=== PATIENT | female | born 1955 | race Caucasian/White ===

== ENCOUNTER 2017-10-08 17:52 | Emergency (ER) | payer OTHER ==
[2017-10-08] MEDS ORDERED: ONDANSETRON 4 MG/2 ML VIAL ONE (18:12)
[2017-10-08] MEDS ORDERED: NS 1,000 ML IV ONE (18:20)
[2017-10-08] MEDS ORDERED: ONDANSETRON 4 MG/2 ML VIAL IVP ONE ×2 (18:20→21:22)
--- NOTE | 2017-10-08 18:26 | EDPHY ---
H & P Stated Complaint: abd pain Time Seen by Provider: 10/08/17 18:15 HPI/ROS: CHIEF COMPLAINT: Left lower quadrant abdominal pain HISTORY OF PRESENT ILLNESS: 62-year-old female arrives via private vehicle, driven by her friend, complaining of left lower quadrant abdominal pain since this afternoon approximately 3:00 p.m.. She last ate at 2:30 p.m. consisting of percy soup which she tolerated albeit with some postprandial nausea. She believes she may be constipated noting that her last bowel movement was this morning but notes that she has not had as significant a bowel movement as is usual in the past 3 days. Denies: Dysuria, hematuria, increased frequency, trauma or fall, fever chills, flu-like symptoms. 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 SOCIAL HISTORY: Nonsmoker PHYSICAL EXAM (Prior to examination, patient consented to physical exam, hands were washed and my usual and customary physical exam procedures followed) 1) GENERAL: Well-developed, well-nourished, alert and oriented. Appears uncomfortable, crying 2) HEAD: Normocephalic, atraumatic 3) HEENT: Pupils equal, round, reactive to light bilaterally. Sclera anicteric. Nasopharynx, oropharynx, clear, no lesions. Dry mucous membranes. 4) NECK: Full range of motion, no meningeal signs. 5) LUNGS: Clear auscultation bilaterally, no wheezes, no rhonchi, no retractions. 6) HEART: Regular rate and rhythm, no murmur, no heave, no gallop. 7) ABDOMEN: Tender to palpation left upper and left lower quadrant., 8) MUSCULOSKELETAL: Moving all extremities, no focal areas of tenderness, no obvious trauma. No peripheral edema or discoloration. 9) BACK: No CVA tenderness, no midline vertebral tenderness, no fluctuance, no step-off, no obvious trauma, no visual or palpable abnormality. 10) SKIN: No rash, no petechiae. 11) Psychiatric: Patient is oriented X 3, there is no agitation. DIFFERENTIAL DIAGNOSIS: My differential diagnosis includes, but is not limited to, acute appendicitis, acute cholecystitis, bowel obstruction, acute pancreatitis, - Personal History Current Tetanus/Diphtheria Vaccine: Unsure Current Tetanus Diphtheria and Acellular Pertussis (TDAP): Unsure - Medical/Surgical History Hx Asthma: No Hx Chronic Respiratory Disease: No Hx Diabetes: No Hx Cardiac Disease: No Hx Renal Disease: No Hx Cirrhosis: No Hx Alcoholism: No Hx HIV/AIDS: No Hx Splenectomy or Spleen Trauma: No Other PMH: abdominal surgery, knee surgery spinal surgery, L5 discecotmy, ovarian cyst - Social History Smoking Status: Never smoked Constitutional: Initial Vital Signs Temperature (C) 36.8 C 10/08/17 17:56 Heart Rate 89 10/08/17 17:56 Respiratory Rate 20 10/08/17 17:56 Blood Pressure 130/69 H 10/08/17 17:56 O2 Sat (%) 99 10/08/17 17:56 O2 Delivery Mode Nasal Cannula O2 (L/minute) 2 Allergies/Adverse Reactions: codeine Allergy (Verified 10/08/17 17:56) Home Medications: Medication Instructions Recorded Bioidenical Hormones 10/08/17 Medical Decision Making - Diagnostics Imaging Results: Imaging Impressions Abdomen CT 10/08/17 18:28 Impression: 1. There is a 10.2 x 16.9 x 16.5 cm thin-walled nonenhancing cystic mass noted from the level of the umbilicus caudally into the pelvis, with features favoring a peritoneal inclusion cyst. This has mass effect on the ureters at the pelvic inlet and displaces loops of bowel peripherally, and also has some mass effect on the cephalad aspect of the urinary bladder and the peripheral lateral portion of the uterus. 2. Mild bilateral hydroureteronephrosis. 3. Query mild antral gastritis versus incomplete distention of the distal stomach. 4. Constipation. There is no evidence of diverticulitis. Images reviewed myself ED Course/Re-evaluation: 6:28 p.m.: Patient has left lower quadrant abdominal pain. Recommended laboratory studies, CT imaging. Her I-STAT has resulted potassium 2.7. Unknown if this is factitious. Will wait on stat treatment of this until her laboratory potassium is returned. Care of patient under supervision of primary secondary supervising physician Dr Connors with whom I discussed case . 6:48 p.m.: Potassium 3.0. Will plan on administration of potassium supplementation 8:50 p.m.: Consultation with Dr. Delroy Nicolas general surgery regarding the patient's likely peritoneal inclusion cyst.. He recommended pain management, outpatient follow-up. 9:00 p.m.: Re-evaluation, she is tolerating oral potassium supplementation. Pain control has been challenging in this patient in the emergency department. She notes return of pain and expresses concerns about pain management. Will plan on consultation with [facility] regarding transfer for pain management. 9:03 p.m.: Left message with [facility] call line , they are currently busy, they will call me back. 9:45 p.m.: Consultation with [facility] physician. 10:15 p.m.: Informed by [facility] physician that patient has been accepted to [facility] accepting physician Dr. Issa Keyes, direct admission. They are coordinating ambulance[email or web address] completed. - Data Points Laboratory Results: Laboratory Results 10/08/17 18:23 10/08/17 18:23 10/08/17 10/08/17 10/08/17 20:35 18:25 18:23 WBC RBC Hgb POC Hgb 13.9 gm/dL gm/dL (12.6-16.3) Hct POC Hct 41 % % (38-47) MCV MCH MCHC RDW Plt Count MPV Neut % (Auto) Lymph % (Auto) [place] % (Auto) Eos % (Auto) Baso % (Auto) Nucleat RBC Rel Count Absolute Neuts (auto) Absolute Lymphs (auto) Absolute Monos (auto) Absolute Eos (auto) Absolute Basos (auto) Absolute Nucleated RBC Immature Gran % Immature Gran # POC Sodium 142 mEq/L mEq/L (135-145) Sodium 142 mEq/L mEq/L (135-145) POC Potassium 2.7 mEq/L L* mEq/L (3.3-5.0) Potassium 3.0 mEq/L L mEq/L (3.5-5.2) POC Chloride 105 mEq/L mEq/L (97-110) Chloride 105 mEq/L mEq/L (97-110) Carbon Dioxide 20 mEq/l L mEq/l (22-31) Anion Gap 17 mEq/L H mEq/L (8-16) POC BUN 9 mg/dL mg/dL (7-23) BUN 10 mg/dL mg/dL (7-23) Creatinine 0.5 mg/dL L mg/dL (0.6-1.0) POC Creatinine 0.5 mg/dL L mg/dL (0.6-1.0) Estimated GFR > 60 Glucose 113 mg/dL H mg/dL (70-100) POC Glucose 121 mg/dL H mg/dL (70-100) Calcium 9.1 mg/dL mg/dL (8.5-10.4) Total Bilirubin 0.4 mg/dL mg/dL (0.1-1.4) Conjugated Bilirubin 0.3 mg/dL mg/dL (0.0-0.5) Unconjugated Bilirubin 0.1 mg/dL mg/dL (0.0-1.1) AST 24 IU/L IU/L (14-46) ALT 30 IU/L IU/L (9-52) Alkaline Phosphatase 74 IU/L IU/L (38-126) Total Protein 6.7 g/dL g/dL (6.3-8.2) Albumin 4.0 g/dL g/dL (3.5-5.0) Lipase 246 IU/L IU/L (23-300) Urine Color PALE YELLOW Urine Appearance CLEAR Urine pH 6.0 (5.0-7.5) Ur Specific [place] > 1.035 H (1.002-1.030) Urine Protein NEGATIVE (NEGATIVE) Urine Ketones 2+ H (NEGATIVE) Urine Blood NEGATIVE (NEGATIVE) Urine Nitrate NEGATIVE (NEGATIVE) Urine Bilirubin NEGATIVE (NEGATIVE) Urine Urobilinogen NEGATIVE EU EU (0.2-1.0) Ur Leukocyte Esterase NEGATIVE (NEGATIVE) Urine RBC 1-3 /hpf /hpf (0-3) Urine WBC 1-3 /hpf /hpf (0-3) Ur Epithelial Cells NONE SEEN /lpf /lpf (NONE-1+) Urine Mucus TRACE /lpf /lpf (NONE-1+) Urine Glucose NEGATIVE (NEGATIVE) 10/08/17 18:23 WBC 5.67 10^3/uL 10^3/uL (3.80-9.50) RBC 4.17 10^6/uL L 10^6/uL (4.18-5.33) Hgb 13.2 g/dL g/dL (12.6-16.3) POC Hgb Hct 38.9 % % (38.0-47.0) POC Hct MCV 93.3 fL fL (81.5-99.8) MCH 31.7 pg pg (27.9-34.1) MCHC 33.9 g/dL g/dL (32.4-36.7) RDW 13.1 % % (11.5-15.2) Plt Count 200 10^3/uL 10^3/uL (150-400) MPV 10.4 fL fL (8.7-11.7) Neut % (Auto) 45.6 % % (39.3-74.2) Lymph % (Auto) 42.7 % % (15.0-45.0) [place] % (Auto) 7.8 % % (4.5-13.0) Eos % (Auto) 2.8 % % (0.6-7.6) Baso % (Auto) 0.9 % % (0.3-1.7) Nucleat RBC Rel Count 0.0 % % (0.0-0.2) Absolute Neuts (auto) 2.59 10^3/uL 10^3/uL (1.70-6.50) Absolute Lymphs (auto) 2.42 10^3/uL 10^3/uL (1.00-3.00) Absolute Monos (auto) 0.44 10^3/uL 10^3/uL (0.30-0.80) Absolute Eos (auto) 0.16 10^3/uL 10^3/uL (0.03-0.40) Absolute Basos (auto) 0.05 10^3/uL 10^3/uL (0.02-0.10) Absolute Nucleated RBC 0.00 10^3/uL 10^3/uL (0-0.01) Immature Gran % 0.2 % % (0.0-1.1) Immature Gran # 0.01 10^3/uL 10^3/uL (0.00-0.10) POC Sodium Sodium POC Potassium Potassium POC Chloride Chloride Carbon Dioxide Anion Gap POC BUN BUN Creatinine POC Creatinine Estimated GFR Glucose POC Glucose Calcium Total Bilirubin Conjugated Bilirubin Unconjugated Bilirubin AST ALT Alkaline Phosphatase Total Protein Albumin Lipase Urine Color Urine Appearance Urine pH Ur Specific [place] Urine Protein Urine Ketones Urine Blood Urine Nitrate Urine Bilirubin Urine Urobilinogen Ur Leukocyte Esterase Urine RBC Urine WBC Ur Epithelial Cells Urine Mucus Urine Glucose Medications Given: Discontinued Medications Fentanyl (Sublimaze) 100 mcg IVP EDNOW ONE Stop: 10/08/17 19:48 Last Admin: 10/08/17 19:48 Dose: 100 mcg Sodium Chloride (Ns) 1,000 mls @ 0 mls/hr IV ONCE ONE PRN Reason: Wide Open Stop: 10/08/17 18:21 Last Admin: 10/08/17 18:21 Dose: 1,000 mls Morphine Sulfate (Morphine) 4 mg IVP EDNOW ONE Stop: 10/08/17 18:28 Last Admin: 10/08/17 18:39 Dose: 4 mg Morphine Sulfate (Morphine) 4 mg IVP EDNOW ONE Stop: 10/08/17 21:23 Last Admin: 10/08/17 21:27 Dose: 4 mg Ondansetron HCl (Zofran) 4 mg IVP EDNOW ONE Stop: 10/08/17 18:21 Last Admin: 10/08/17 18:21 Dose: 4 mg Ondansetron HCl (Zofran) 4 mg IVP EDNOW ONE Stop: 10/08/17 21:23 Last Admin: 10/08/17 21:27 Dose: 4 mg Potassium Chloride (Klor-Con) 20 meq PO EDNOW ONE Stop: 10/08/17 20:57 Last Admin: 10/08/17 21:00 Dose: 20 meq Point of Care Test Results: 10/08/17 18:25 POC Sodium 142 POC Potassium 2.7 L* POC Chloride 105 POC BUN 9 POC Creatinine 0.5 L POC Glucose 121 H Departure - Departure Disposition: Acute Care Hospital [facility] Clinical Impression: Peritoneal inclusion cyst Abdominal pain Qualifiers: Abdominal location: generalized Qualified Code(s): R10.84 - Generalized abdominal pain Condition: Fair Referrals: TRISTIN SIDHU [Other] - As per Instructions
[2017-10-08 18:37] LABS: PLATELET COUNT 200 10^3/uL (150-400)
[2017-10-08] MEDS ORDERED: IOPAMIDOL (ISOVUE-300) 100 ML BTL ONE (18:49)
--- NOTE | 2017-10-08 19:37 | CPEKG ---
Heart Rate: 76 RR Interval: 789 P-R Interval: 168 QRSD Interval: 80 QT Interval: 400 QTC Interval: 450 P [place]: 50 QRS [place]: 95 T Wave [place]: 37 EKG Severity - BORDERLINE ECG - EKG Impression: SINUS RHYTHM EKG Impression: LOW VOLTAGE IN FRONTAL LEADS EKG Impression: BORDERLINE T ABNORMALITIES, ANTERIOR LEADS Electronically Signed By: Radha Powell 11-Oct-2017 06:04:20
[2017-10-08] MEDS ORDERED: fentaNYL 100 MCG/2 ML INJ IVP ONE (19:47)
[2017-10-08] MEDS ORDERED: POTASSIUM CL 10 MEQ TAB PO ONE (20:56)
[2017-10-08 22:23] VITALS: BP 116/71
== END 2017-10-08 22:33 | disposition short-term general hospital (02) ==
DX: K66.8 Other specified disorders of peritoneum (principal)
CPT/HCPCS: 82947-QW; 96374; J2270; J2405; J3010; Q9967